=== PATIENT | female | born 1990 | race African-American/Black ===

== ENCOUNTER 2022-05-29 14:56 | Inpatient (IN) | payer MEDICAID, OTHER ==
[2022-05-29] MEDS ORDERED: LACTATED RINGERS 1,000 ML ONE (15:15)
[2022-05-29] MEDS ORDERED: fentaNYL 100 MCG/2 ML INJ IV PRN (17:00)
[2022-05-29] MEDS ORDERED: LOPERAMIDE 2 MG CAP PO NR (17:00)
[2022-05-29] MEDS ORDERED: LIDOCAINE (2%) 20 MG/1 ML VIAL 20 ML MDV INFILTRATI NR (17:00)
[2022-05-29] MEDS ORDERED: METHYLERGONOVINE MALEATE 0.2 MG/ML VIAL IM NR (17:00)
[2022-05-29] MEDS ORDERED: OXYTOCIN 10 UNIT/1 ML INJ IM NR (17:00)
[2022-05-29] MEDS ORDERED: miSOPROStol 200 MCG TAB PR NR (17:00)
[2022-05-29] MEDS ORDERED: TERBUTALINE 1 MG/1 ML INJ SUB-Q NR (17:00)
[2022-05-29] MEDS ORDERED: OXYTOCIN DRIP 30 UNITS/500 ML BAG IV SCH ×2 (17:00)
[2022-05-29] MEDS ORDERED: ePHEDrine SULFATE 50 MG/1 ML INJ IV PRN ×2 (17:00→21:11)
[2022-05-29] MEDS ORDERED: LACTATED RINGERS 1,000 ML IV SCH (17:00)
[2022-05-29] MEDS ORDERED: ONDANSETRON 4 MG/2 ML INJ IV PRN (17:00)
[2022-05-29] MEDS ORDERED: BUTORPHANOL 2 MG/1 ML INJ IV PRN (17:00)
[2022-05-29] MEDS ORDERED: CARBOPROST TROMETHAMINE 250 MCG/1 ML INJ IM NR (17:00)
[2022-05-29] MEDS ORDERED: ACETAMINOPHEN 325 MG TAB PO PRN (17:00)
[2022-05-29 17:14] LABS: Hematocrit 37.1 % (30.3-42.9); Hemoglobin 12.4 gm/dl (10.1-14.3); Mean Corpuscular HGB Conc 33 % (30-34); Mean Corpuscular Volume 83 fl (79-97); Platelet Count 230 K/mm3 (140-440); Red Blood Count 4.45 M/mm3 (3.65-5.03); Red Cell Distribution Width 16.1 % (13.2-15.2)
--- NOTE | 2022-05-29 18:35 | History and Physical Report ---
History of Present Illness Date of examination: 05/29/22 (1800) Date of admission: 05/29/22 16:39 Chief complaint: contractions History of present illness: Patient is 31yo female of Life Cycle OBKELLIN, @39wks gestation. She presented for direct admission from the office. Her exam in the office was 6/60/-3, intact. She is GBS negative. She failed her 1hr Glucola (140), and passed her 3hr. Otherwise, her course was unremarkable. Past History Past Medical History: no pertinent history Past Surgical History: no surgical history Family/Genetic History: none Social history: - Obstetrical History Expected Date of Delivery: 06/05/22 Actual Gestation: 39 Week(s) 0 Day(s) : 2 Para: 1 Hx # Term Pregnancies: 1 Number of Pregnancies: 0 Spontaneous Abortions: 0 Induced : 0 Number of Living Children: 1 #1 Infant Gender: Male year: 2020 Birthweight: 7 lb 9.6 oz Method of Delivery: Vaginal Gestational age at delivery: 39 (meconium) Complications: none Medications and Allergies Allergies Allergy/AdvReac Type Severity Reaction Status Date / Time No Known Allergies Allergy Unverified 11/23/19 16:26 Home Medications Medication Instructions Recorded Confirmed Last Taken Type No Known Home Medications [No 11/23/19 11/23/19 Unknown History Reported Home Medications] Active Meds: Active Medications Acetaminophen (Acetaminophen 325 Mg Tab) 650 mg PO Q4H PRN PRN Reason: Pain, Mild (1-3) Butorphanol Tartrate (Butorphanol 2 Mg/1 Ml Inj) 1 mg IV Q2H PRN PRN Reason: Pain, Moderate(4-6) LABOR PAIN Carboprost Tromethamine (Carboprost Tromethamine 250 Mcg/1 Ml Inj) 250 mcg IM O NCE NR Stop: 05/29/22 23:59 Ephedrine Sulfate (Ephedrine Sulfate 50 Mg/1 Ml Inj) 10 mg IV Q2M PRN PRN Reason: Hypotension Fentanyl (Fentanyl 100 Mcg/2 Ml Inj) 100 mcg IV Q2H PRN PRN Reason: Pain,Severe (7-10) LABOR PAIN Last Admin: 05/29/22 18:19 Dose: 100 mcg Oxytocin/Sodium Chloride (Pitocin/Ns 30 Unit/500ml) 30 units in 500 mls @ 2 mls/hr IV TITR ACACIA; Protocol Last Titration: 05/29/22 17:46 Dose: 4 mls/hr Lactated Ringer's (Lactated Ringers) 1,000 mls @ 125 mls/hr IV DIRECT ACACIA Oxytocin/Sodium Chloride (Pitocin/Ns 30 Unit/500ml) 30 units in 500 mls @ 40 mls/hr IV TITR ACACIA; Protocol Lidocaine (Lidocaine (2%) 20 Mg/1 Ml Vial 20 Ml Mdv) 20 ml INFILTRATI ONCE NR Stop: 05/29/22 23:59 Loperamide HCl (Loperamide 2 Mg Cap) 2 mg PO ONCE NR Stop: 05/29/22 23:59 Methylergonovine Maleate (Methylergonovine Maleate 0.2 Mg/Ml Vial) 0.2 mg IM ONCE NR Stop: 05/29/22 23:59 Mineral Oil (Mineral Oil 30 Ml Oral Liqd) 30 ml PO QHS PRN PRN Reason: Constipation Misoprostol (Misoprostol 200 Mcg Tab) 800 mcg AL ONCE NR Stop: 05/29/22 23:59 Ondansetron HCl (Ondansetron 4 Mg/2 Ml Inj) 4 mg IV Q8H PRN PRN Reason: Nausea And Vomiting Oxytocin (Oxytocin 10 Unit/1 Ml Inj) 10 unit IM ONCE NR Stop: 05/29/22 23:59 Terbutaline Sulfate (Terbutaline 1 Mg/1 Ml Inj) 0.25 mg SUB-Q ONCE NR Stop: 05/29/22 23:59 - Vital Signs Vital signs: Vital Signs Pulse Pulse Ox 88 97 05/29/22 15:17 05/29/22 15:17 Temp Pulse Resp BP Pulse Ox 89 20 110/73 92 05/29/22 18:29 05/29/22 18:19 05/29/22 18:22 05/29/22 18:29 - Physical Exam Breasts: Positive: deferred Cardiovascular: Regular rate Lungs: Positive: Clear to auscultation, Normal air movement Abdomen: Positive: normal appearance Genitourinary (Female): Positive: normal external genitalia Vulva: both: normal Vagina: Positive: normal moisture Uterus: Positive: enlarged (gravid) Anus/Rectum: Positive: normal perianal skin Extremities: Positive: normal Deep Tendon Reflex Grade: Normal +2 - Obstetrical FHR: category 1 Uterine Contraction Monitor Mode: External Cervical Dilatation: 6 Cervical Effacement Percentage: 80 station: -3 Uterine Contraction Pattern: Regular Uterine Contraction Intensity: Moderate Results Result Diagrams: 05/29/22 15:40 Abnormal lab results 05/29/22 Range/Units 15:40 RDW 16.1 H (13.2-15.2) % All other labs normal. Assessment and Plan A: HD#1 @39wks Labor Pitocin @2mu P: External monitoring EFM/TOCO L&D nursing care management AROM
[2022-05-29] MEDS ORDERED: MINERAL OIL 30 ML ORAL LIQD ONE (19:35)
[2022-05-29] MEDS ORDERED: NALOXONE 0.4 MG/1 ML INJ IV PRN (21:11)
[2022-05-29] MEDS ORDERED: fentaNYL-BUPIV 2 MCG/ML-0.125% 200 MCG/100 ML BAG EPIDURAL SCH (21:11)
--- NOTE | 2022-05-29 21:14 | Anesthesia Consultation ---
Anesthesia Consult and Med Hx Date of service: 05/29/22 - Airway Anesthetic Teeth Evaluation: Good ROM Head & Neck: Adequate Mental/Hyoid Distance: Adequate Mallampati Class: Class II Intubation Access Assessment: Probably Good - Pulmonary Exam CTA: Yes - Cardiac Exam Cardiac Exam: RRR - Pre-Operative Health Status ASA Pre-Surgery Classification: ASA2 Proposed Anesthetic Plan: Epidural, Spinal - Pulmonary Hx Smoking: No Hx Asthma: No Hx Respiratory Symptoms: No SOB: No COPD: No Home Oxygen Therapy: No Hx Pneumonia: No Hx Sleep Apnea: No - Cardiovascular System Hx Hypertension: No Hx Coronary Artery Disease: No Hx Heart Attack/AMI: No Hx Angina: No Hx Percutaneous Transluminal Coronary Angioplasty (PTCA): No Hx Cardia Arrhythmia: No Hx Pacemaker: No Hx Internal Defibrillator: No Hx Valvular Heart Disease: No Hx Heart Murmur: No Hx Peripheral Vascular Disease: No - Central Nervous System Hx Neuromuscular Disorder: No Hx Seizures: No CVA: No Hx Back Pain: No Hx Psychiatric Problems: No - Gastrointestinal Hx Ulcer: No Hx Gastroesophageal Reflux Disease: No - Endocrine Hx Renal Disease: No Hx End Stage Renal Disease: No Hx Cirrhosis: No Hx Liver Disease: No Hx Insulin Dependent Diabetes: No Hx Non-Insulin Dependent Diabetes: No Hx Thyroid Disease: No Hx Hypothyroidism: No Hx Hyperthyroidism: No - Hematic Hx Anemia: No Hx Sickle Cell Disease: No - Other Systems Hx Alcohol Use: No Hx Substance Use: No Hx Cancer: No Hx Obesity: No
--- NOTE | 2022-05-29 21:15 | Anesthesia Day of Surgery ---
Anesthesia Day of Surgery - Day of Surgery Patient Examined: Yes Patient H&P Reviewed: Yes Patient is NPO: Yes Beta Blockers: No Cardiac Clearance: No Pulmonary Clearance: No Luis's Test: N/A
--- NOTE | 2022-05-29 21:17 | Progress Note ---
Labor Epidural - Labor Epidural Start Time: 20:57 Stop Time: 21:03 Performed by:: ANDREA VALENCIA Procedure: Epidural Requested for Labor Pain. H&P and PT Chart reviewed and consent obtained. Time out performed and the procedure was explained, all questions answered. Patient was placed in a sitting position with monitors applied. The PTs back was prepped and draped in usual sterile fashion. The Skin was localized with 3 mL of 1% lidocaine at L3-L4. A 17-gauge Touhy epidural needle was advanced to MERLY with saline at 7 cm and no blood/CSF was noted via epidural needle. .8ml of .75% marcaine was injected through a 25g spinal/epidural needle.
--- NOTE | 2022-05-29 21:40 | Event Note ---
Date: 05/29/22 (1944) Patient called out with desire to push @1944, Ve: /-1. Pt was pushing due to urge though warned of cervical swelling (niece at bs for translation) Attempted to reduce, not successful. Attempted to assist patient with different laboring position, ie: hands and knees, squatting, etc.. @2056 received low dose spinal to aid with urge of pushing. Once procedure completed pt fell asleep,@2114 Ve: anterior lip(swollen)/0 station. Plan: Labor down Anticipate vaginal delivery
[2022-05-29] MEDS ORDERED: MINERAL OIL 30 ML ORAL LIQD PO PRN (22:00)
--- NOTE | 2022-05-30 00:17 | Progress Note ---
Labor Epidural - Labor Epidural Start Time: 23:43 Stop Time: 23:55 Performed by:: ANDREA VALENCIA Procedure: Epidural Requested for Labor Pain. H&P and PT Chart reviewed and consent obtained. Time out performed and the procedure was explained, all questions answered. Patient was placed in a sitting position with monitors applied. The PTs back was prepped and draped in usual sterile fashion. The Skin was localized with 3 mL of 1% lidocaine at L3-L4. A 17-gauge Touhy epidural needle was advanced to MERLY with saline at 7 cm and no blood/CSF was noted via epidural needle. Epidural catheter was advanced to 12 cm. There was negative aspiration for blood and CSF in the catheter and negative response to a test dose of 3 ml 1.5% lidocaine w/ Epi and a sterile dressing was applied Patient tolerated the procedure well and there were no immediate complications noted.
[2022-05-30] MEDS ORDERED: D5W/LACTATED RINGERS 1,000 ML IV SCH (06:00)
[2022-05-30] MEDS ORDERED: AZITHROMYCIN/NS 500 MG/250 ML 500 MG/250 ML BAG IV ONE (06:32)
[2022-05-30] MEDS ORDERED: FAMOTIDINE 20 MG/2 ML INJ IV ONE (06:32)
[2022-05-30] MEDS ORDERED: BICITRA ORAL LIQD 30ML PO ONE (06:32)
[2022-05-30] MEDS ORDERED: METOCLOPRAMIDE 10 MG/2 ML INJ IV ONE (06:32)
--- NOTE | 2022-05-30 06:38 | Ultrasound Report ---
ULTRASOUND OBSTETRIC INDICATION / CLINICAL INFORMATION: Prolonged 2nd stage of labor. - Clinical Gestational Age (GA) in weeks, days: 39 weeks 1 day TECHNIQUE: Transabdominal. COMPARISON: None available. FINDINGS: Single intrauterine . Biparietal Diameter = 8.8 cm = 35, 4 weeks, days Head Circumference = 32.5 cm = 36, 6 weeks, days Abdominal Circumference = 31.3 cm = 35, 2 weeks, days Femur Length = 7.0 cm = 35, 6 weeks, days Average Ultrasound Age (AUA) = 35, 6 weeks, days Heart Rate: 165 beats per minute. Estimated Weight in grams (if calculated): 2715 Estimated Weight Growth Percentile (if calculated): Not calculated. Position: cephalic. Baby is facing head down with spine up. IMPRESSION: 1. Single, living intrauterine with estimated sonographic age of 35 weeks 6 days, which is discordant from the clinical age of 39 weeks 1 day. 2. No significant sonographic abnormality. Signer Name: Bridger Contreras MD Signed: 05/30/2022 6:34 AM Workstation Name: [id number]
[2022-05-30] MEDS ORDERED: BUPIVACAINE/PF (0.25%) 2.5 MG/ML 10 ML VIAL INFILTRATI ONE (06:43)
[2022-05-30] MEDS ORDERED: LACTATED RINGERS 1,000 ML IV SCH ×2 (06:45→13:30)
[2022-05-30] MEDS ORDERED: ceFAZolin/STERILE WATER 2 GM/20 ML SYRINGE IV ONE (06:58)
[2022-05-30] MEDS ORDERED: ceFAZolin/Water 2 GM/20 ML 2 GM/20 ML SYRINGE IV NR (07:00)
[2022-05-30] MEDS ORDERED: OXYTOCIN DRIP 30 UNITS/500 ML BAG IV SCH (07:00)
[2022-05-30] MEDS ORDERED: WATER FOR IRRIG STERILE 1,500 ML BOTTLE IR ONE (07:22)
[2022-05-30] MEDS ORDERED: SODIUM CHLORIDE 0.9% IRR 1,500 ML BOTTLE IR ONE (07:22)
[2022-05-30] MEDS ORDERED: LIDOCAINE PF 100 MG/5 ML (CARDIAC SYRINGE) IV ONE ×3 (07:36→08:31)
[2022-05-30 07:37] LABS: Hematocrit 35.1 % (30.3-42.9); Hemoglobin 11.5 gm/dl (10.1-14.3); Mean Corpuscular HGB Conc 33 % (30-34); Mean Corpuscular Volume 83 fl (79-97); Platelet Count 195 K/mm3 (140-440); Red Blood Count 4.26 M/mm3 (3.65-5.03); Red Cell Distribution Width 16.2 % (13.2-15.2)
[2022-05-30] MEDS ORDERED: CARBOPROST TROMETHAMINE 250 MCG/1 ML INJ IM ONE ×2 (08:00→08:04)
[2022-05-30] MEDS ORDERED: METHYLERGONOVINE MALEATE 0.2 MG/ML VIAL IM ONE ×2 (08:00→08:04)
[2022-05-30] MEDS ORDERED: AMPICILLIN 2 GM in SODIUM CHLORIDE 0.9% 50 ML IV SCH (08:00)
[2022-05-30] MEDS ORDERED: PHENYLEPHRINE/NS 1,000 MCG/10 ML SYRINGE (OR USE) IV ONE (08:10)
[2022-05-30] MEDS ORDERED: fentaNYL 100 MCG/2 ML INJ ONE ×2 (08:13→09:24)
[2022-05-30] MEDS ORDERED: BUPIVACAINE/PF (0.5%) 5 MG/1 ML 30 ML VIAL INFILTRATI ONE (08:21)
[2022-05-30 08:35] LABS: Anisocytosis 1+; Band Neutrophils # (Manual) 0.7 K/mm3; Basophils % (Manual) 0 % (0.0-1.8); Eosinophils % (Manual) 0 % (0.0-4.3); Platelet Estimate Consistent w Auto; Total Cells Counted 100
[2022-05-30] MEDS ORDERED: ONDANSETRON 4 MG/2 ML INJ ONE (08:41)
[2022-05-30] MEDS ORDERED: DIPHENOXYLATE/ATROPINE TAB PO PRN (10:00)
[2022-05-30] MEDS ORDERED: ACETAMINOPHEN 500 MG TAB ONE (10:04)
--- NOTE | 2022-05-30 10:09 | Progress Note ---
Regional Anesthesia Block - Regional Anesthesia Block Start Time: :45 Stop Time: :50 Performed By:: ANDREA VALENCIA Procedure: . After Pts C/S was completed a time out was performed prior to the start of the procedure. The Trans Abdominal Plane was identified bilaterally via ultrasound. The skin was prepped bilaterally with chlorhexidine and a 22g stimuplex needle was advanced to the area between the internal oblique muscle a nd the trans abdominal plane. Marcaine 0.25% 30mlwas injected under ultrasound guidance on the left and right side. Negative aspiration every 5mL, There was no change in the patients heart rate or rhythm and the patient tolerated the procedure well. No apparent complications were observed.
[2022-05-30] MEDS ORDERED: IBUPROFEN 600 MG TAB PO PRN ×2 (10:44→10:51)
--- NOTE | 2022-05-30 10:53 | Procedure Note ---
OB Delivery Note - Delivery Date of Delivery: 05/30/22 Surgeon: MONTSERRAT FOSTER Estimated blood loss: other (1558 mL) - Section Preop diagnosis: other (1.) 39-1/7 weeks, 2.) Second stage arrest, 3.) Intraamniotic inflammation and infection, 4.) Meconium) Postop diagnosis: other (1.) 39-1/7 weeks, 2.) Second stage arrest, 3.) Intraamniotic inflammation and infection, 4.) Meconium, 5.) Cephalopelvic disproportion) section procedure: primary low transverse Disposition: PACU Complications: none Narrative: PREOPERATIVE DIAGNOSES: 1.) Intrauterine at 39-1/7 weeks gestation 2.) Second stage arrest. 3.) Intraamniotic inflammation and infection. 4.) Meconium. POSTOPERATIVE DIAGNOSES: 1.) Intrauterine at 39-1/7 weeks gestation 2.) Second stage arrest. 3.) Intraamniotic inflammation and infection. 4.) Meconium. 5.) Cephalopelvic disproportion. PROCEDURE PERFORMED: Primary low-transverse section. SURGEON: Montserrat Foster M.D. ANESTHESIA: Epidural and transverse abdominal plane block. FLUIDS: 2200 mL Lactated Ringer's. ESTIMATED BLOOD LOSS: 1558 mL. URINE OUTPUT: 300 mL. COMPLICATIONS: None. PATHOLOGY: Placenta sent for pathological examination. FINDINGS: Male in cephalic presentation, right occiput transverse position, weight 7 pounds 10 ounces. Apgars were 7 at 1 minute and 8 at 5 minutes. Normal uterus, tubes, and ovaries were noted. INDICATIONS: The patient is a 31-year-old 2, para 1 female, who presented to labor and delivery in active labor at 39 weeks gestation. The patient progressed to complete cervical dilation. Epidural was placed. Pitocin was given per protocol. But despite adequate contractions, she had second stage arrest at complete cervical, 100% effacement, and 0 station. Furthermore, there was maternal temperature of >39C, tachycardia, and maternal leukocytosis; this fulfills the contemporary criteria for intraamniotic inflammation and infection. A decision was made to proceed with a primary low transverse section. The procedure was described to the patient in detail including possible risks of bleeding, infection, injury to surrounding organs, and possible need for further surgery. Informed consent was obtained prior to proceeding with the procedure. PROCEDURE NOTE: The patient was taken to the operating room where epidural anesthesia was found to be adequate. Preoperative Ancef and azithromycin were administered. The patient was prepped and draped in the usual sterile fashion in the dorsal supine position with a left-li tilt. A Pfannenstiel skin incision was made with the scalpel and carried through to the underlying layer of fascia using the Bovie. The fascia was incised in the midline with the Bovie and extended laterally using the Bovie. Christiano clamps were used to elevate the superior aspect of the fascial incision, which was elevated, and the underlying rectus muscles were dissected off with the Bovie. Attention was then turned to the inferior aspect of the fascial incision, which in similar fashion was grasped with Christiano clamps, elevated, and the underlying rectus muscles were dissected off using Estrada scissors. The rectus muscles were dissected in the midline with the Bovie. The peritoneum was sharply dissected with the Metzenbaum scissors, entered, and extended superiorly and inferiorly with good visualization of the bladder. The Cortes self-retaining retractor was inserted. The vesicouterine peritoneum was identified with pickups and entered sharply using Metzenbaum scissors. This incision was extended laterally and the bladder flap was created digitally. The bladder blade was inserted. The lower uterine segment was incised in a transverse fashion using the scalpel and extended using manual traction. Meconium was noted. The fetus was in right occiput transverse position. The head was gently elevated out of the pelvis and then subsequently delivered atraumatically. The mouth and nose were bulb suctioned. The cord was clamped and cut. The infant was subsequently handed to the awaiting nursery team. Cord blood was obtained. Subsequent to the collection of this blood, the placenta was removed spontaneously intact with a 3-vessel cord noted. The uterus was cleared of all clots and debris. The uterus was left in situ. The uterine incision was repaired with 0 Monocryl in a running fashion. Then, the uterine incision was repaired with a second layer of 0 Monocryl in a horizontal imbricating fashion. The vesicouterine peritoneum was then reapproximated with 3-0 Vicryl in a running fashion. Hemostasis was visualized. Subsequently, the Cortes retractor was removed. The uterus was exteriorized. The posterior cul-de-sac was irrigated. Then, the uterus was returned to the abdomen. The pelvis was copiously irrigated. The uterine incision was reexamined and was noted to be hemostatic. The parietal peritoneum was reapproximated with 3-0 Jesus ryl in a running fashion. Then, the rectus muscles were reapproximated in the midline using 2-0 chromic. The fascia was closed with 0 Vicryl, the subcutaneous layer was closed with 2-0 chromic gut, and the skin was closed with 3-0 Vicryl in a running subdermal fashion. The skin edges were tension-free and well approximated, so Dermabond was then placed atop the skin. Sponge, lap, and instrument counts were correct x2. The patient was stable at the completion of the procedure and was subsequently transferred to the recovery room in stable condition. Postoperative ampicillin and gentamicin were ordered for treatment of intra amniotic inflammation and infection. Lactic acid level and blood cultures were ordered as well. - Infant A at 1 minute: 7 at 5 minutes: 8 Gender: Male
[2022-05-30] MEDS ORDERED: PROMETHAZINE 25 MG TAB PO PRN (11:00)
[2022-05-30] MEDS ORDERED: ACETAMINOPHEN 325 MG TAB PO PRN (11:00)
[2022-05-30] MEDS ORDERED: PROMETHAZINE 25 MG RECT SUPP PR PRN (11:00)
[2022-05-30] MEDS ORDERED: NALOXONE 0.4 MG/1 ML INJ IV PRN (11:00)
[2022-05-30] MEDS ORDERED: fentaNYL-BUPIV 2 MCG/ML-0.125% 200 MCG/100 ML BAG EPIDURAL SCH (11:00)
[2022-05-30] MEDS ORDERED: ACETAMINOPHEN 500 MG TAB PO NR (11:00)
[2022-05-30] MEDS ORDERED: LANOLIN/ZINC/DIMETHICONE (LANSINOH) 7 GM TP PRN (11:00)
[2022-05-30] MEDS ORDERED: MORPHINE 4 MG/1 ML INJ IV PRN (11:00)
[2022-05-30] MEDS ORDERED: ONDANSETRON 4 MG/2 ML INJ IV PRN (11:00)
[2022-05-30] MEDS ORDERED: diphenhydrAMINE 50 MG/ML VIAL IV PRN (11:00)
[2022-05-30] MEDS ORDERED: SIMETHICONE 80 MG CHEW TAB PO PRN (11:00)
[2022-05-30] MEDS ORDERED: HYDROmorphone 1 MG/1 ML INJ IV PRN ×2 (11:00)
[2022-05-30] MEDS ORDERED: KETOROLAC 30 MG/1 ML INJ IV PRN (14:15)
[2022-05-30] MEDS ORDERED: KETOROLAC 60 MG/2 ML INJ IM ONE (14:30)
[2022-05-30] MEDS ORDERED: KETOROLAC 30 MG/1 ML INJ IM SCH (15:00)
[2022-05-30] MEDS: AMPICILLIN/NS 2 GM/100 ML 2 GM/100 ML BAG IV SCH ×2 (15:16→21:08)
[2022-05-30] MEDS: GENTAMICIN 360 MG in SODIUM CHLORIDE 0.9% 100 ML IV SCH (17:02)
[2022-05-30] MEDS: IBUPROFEN 800 MG TAB PO PRN (21:08)
[2022-05-30] MEDS ORDERED: HEPARIN 5,000 UNIT/1 ML VIAL SUB-Q SCH (22:00)
[2022-05-31] MEDS ORDERED: LACTATED RINGERS 1,000 ML IV SCH (02:30)
[2022-05-31] MEDS: AMPICILLIN/NS 2 GM/100 ML 2 GM/100 ML BAG IV SCH ×4 (02:30→23:11)
[2022-05-31] MEDS: IBUPROFEN 800 MG TAB PO PRN ×3 (05:34→18:39)
[2022-05-31] MEDS: PRENATAL VIT27-FE FUMARATE-FOLIC ACID VIT TAB PO SCH (08:20)
[2022-05-31] MEDS: HYDROcodone/ACETAMINOPHEN 5-325 MG TAB PO PRN ×3 (08:20→23:11)
[2022-05-31 08:53] LABS: Hematocrit 23.9 % (30.3-42.9); Hemoglobin 7.7 gm/dl (10.1-14.3); Mean Corpuscular HGB Conc 32 % (30-34); Mean Corpuscular Volume 83 fl (79-97); Platelet Count 202 K/mm3 (140-440); Red Blood Count 2.88 M/mm3 (3.65-5.03); Red Cell Distribution Width 16.4 % (13.2-15.2)
[2022-05-31 09:37] LABS: Anisocytosis 1+; Band Neutrophils # (Manual) 1.1 K/mm3; Basophils % (Manual) 0 % (0.0-1.8); Myelocytes # (Manual) 0.3 K/mm3; Platelet Estimate Consistent w Auto; Total Cells Counted 100; Toxic Vacuolation 1+
--- NOTE | 2022-05-31 11:49 | Progress Note ---
Assessment and Plan A: POD #1 Asymptomatic Anemia P: Follow Routine PostOp Orders Infed 100mg IM x 1 dose Ferrous Sulfate 325mg PO BID Subjective - Subjective Date of service: 05/31/22 Patient reports: appetite normal, voiding normally, pain well controlled, flatus, ambulating normally : in NICU, bottle feeding Objective - Vital Signs Latest vital signs: Vital Signs Temp Pulse Resp BP BP BP Pulse Ox 05/31/22 08:22 98.1 F 86 20 91/55 95 05/31/22 08:20 05/31/22 06:34 18 05/31/22 05:34 20 05/31/22 04:53 97.8 F 92 H 18 100/41 96 05/31/22 00:33 98.2 F 105 H 20 98/44 96 05/30/22 22:08 18 05/30/22 21:08 20 05/30/22 20:00 05/30/22 19:56 98.1 F 98 H 20 95/55 95 05/30/22 16:17 98.8 F 94 H 20 89/50 96 05/30/22 15:32 98.8 F 62 20 88/40 90/39 98 Pulse Ox 05/31/22 08:22 05/31/22 08:20 100 05/31/22 06:34 05/31/22 05:34 05/31/22 04:53 05/31/22 00:33 05/30/22 22:08 05/30/22 21:08 05/30/22 20:00 100 05/30/22 19:56 05/30/22 16:17 05/30/22 15:32 Intake and Output 05/30/22 05/31/22 05/31/22 22:59 06:59 14:59 Intake Total 440 580 240 Output Total 1100 250 Balance -660 580 -10 Intake: IV 200 100 AMPICILLIN/NS 2 GM/100 ML 200 100 2 gm In 100 ml @ 100 mls /hr IV Q6H COUNT INCLUDES THE [facility] Rx#: [id number] Intake, Free Water 240 480 240 Output: Urine 1100 250 Indwelling Catheter 1100 Void 250 Other: Total, Output Amount 500 250 # Voids Void 40 3 - Exam Breasts: Present: normal Cardiovascular: Present: Regular rate Lungs: Present: Clear to auscultation, Normal air movement Abdomen: Present: normal appearance, soft, normal bowel sounds Uterus: Present: normal, firm, fundal height below umbilicus Extremities: Present: normal Incision: Present: normal, dry, intact - Labs Labs: Abnormal lab results 05/31/22 Range/Units 08:31 WBC 26.6 H (4.5-11.0) K/mm3 RBC 2.88 L (3.65-5.03) M/mm3 Hgb 7.7 L D (10.1-14.3) gm/dl Hct 23.9 L D (30.3-42.9) % MCH 27 L (28-32) pg RDW 16.4 H (13.2-15.2) % Seg Neuts % (Manual) 89.0 H (40.0-70.0) % Lymphocytes % (Manual) 4.0 L (13.4-35.0) % Seg Neutrophils # Man 23.7 H (1.8-7.7) K/mm3 Lymphocytes # (Manual) 1.1 L (1.2-5.4) K/mm3
[2022-05-31] MEDS: FERROUS SULFATE 325 MG TAB PO SCH ×2 (13:35→23:11)
[2022-05-31] MEDS ORDERED: IRON DEXTRAN COMPLEX 100 MG/2 ML INJ IM ONE (14:00)
[2022-05-31] MEDS: GENTAMICIN 360 MG in SODIUM CHLORIDE 0.9% 100 ML IV SCH (17:00)
[2022-06-01] MEDS: AMPICILLIN/NS 2 GM/100 ML 2 GM/100 ML BAG IV SCH ×2 (05:44→10:26)
[2022-06-01] MEDS: IBUPROFEN 800 MG TAB PO PRN ×2 (05:50→17:14)
--- NOTE | 2022-06-01 05:53 | Post Anesthesia Evaluation ---
- Post Anesthesia Evaluation Patient Participated: Yes Airway Patent: Yes Stable Respiratory Function: Yes Nausea/Vomiting: No Temp > 96.8F: Yes Pain Manageable: Yes Adequeate Hydration: Yes Anesthesia Complications: No Block Receding Appropriately: Yes Patient on Ventilator: No Other Comments: Pt is complaining of a headache and neck pain that gets worse upon standing.
[2022-06-01] MEDS: PRENATAL VIT27-FE FUMARATE-FOLIC ACID VIT TAB PO SCH (09:40)
[2022-06-01] MEDS: FERROUS SULFATE 325 MG TAB PO SCH ×2 (09:41→22:57)
[2022-06-01] MEDS: GENTAMICIN 360 MG in SODIUM CHLORIDE 0.9% 100 ML IV SCH (11:30)
--- NOTE | 2022-06-01 12:59 | Progress Note ---
Assessment and Plan A: POD #2 Asymptomatic Anemia P: Follow Routine PostOp Orders Ferrous Sulfate 325mg PO BID D/C home today per patient request RTO in one Week Subjective - Subjective Date of service: 06/01/22 Patient reports: appetite normal, voiding normally, pain well controlled, flatus, ambulating normally : in NICU, bottle feeding Objective - Vital Signs Latest vital signs: Vital Signs Temp Pulse Resp BP Pulse Ox Pulse Ox 06/01/22 08:21 97.9 F 78 20 101/67 98 06/01/22 01:15 98.4 F 82 18 94/65 97 05/31/22 21:12 98 05/31/22 16:22 100 05/31/22 16:12 99.4 F 93 H 18 99/56 96 05/31/22 14:24 100 05/31/22 13:21 97.7 F 89 18 104/55 98 Intake and Output 05/31/22 06/01/22 06/01/22 22:59 06:59 14:59 Intake Total 940 560 300 Balance 940 560 300 Intake: IV 100 200 AMPICILLIN/NS 2 GM/100 ML 100 200 2 gm In 100 ml @ 100 mls /hr IV Q6H [facility] Rx#: [id number] Oral 480 300 Intake, Free Water 360 360 Other: Total, Intake Amount 240 100 # Voids Void 1 6 1 - Exam Breasts: Present: normal Cardiovascular: Present: Regular rate Lungs: Present: Clear to auscultation, Normal air movement Abdomen: Present: normal appearance, soft, normal bowel sounds Uterus: Present: normal, firm, fundal height below umbilicus Extremities: Present: normal Incision: Present: normal, dry, intact
[2022-06-01] MEDS: HYDROcodone/ACETAMINOPHEN 5-325 MG TAB PO PRN (13:00)
--- NOTE | 2022-06-01 13:00 | Discharge Summary ---
Providers - Providers Date of Admission: 05/29/22 16:39 Date of discharge: 06/01/22 Attending physician: MONTSERRAT PATEL MD Primary care physician: MONTSERRAT PATEL MD Hospitalization Reason for admission: active labor Delivery: Procedure: primary low transverse Episiotomy: none Laceration: none Incision: normal, dry, intact Other procedures: none complications: none Discharge diagnosis: IUP at term delivered baby: male Condition at discharge: Good Disposition: 01 HOME / SELF CARE / HOMELESS Plan - Provider Discharge Summary Activity: routine, no sex for 6 weeks, no heavy lifting 4 weeks, no strenuous exercise Diet: routine Instructions: routine Additional instructions: [] Smoking cessation referral if applicable(refer to patient education folder for contact #) [] Refer to [facility] Booklet Call your doctor immediately for: * Fever > 100.5 * Heavy vaginal bleeding ( >1 pad per hour) * Severe persistent headache * Shortness of breath * Reddened, hot, painful area to leg or breast * Drainage or odor from incision. * Keep incision clean and dry at all times and follow doctor's instructions regarding bathing/showering - Follow up plan Follow up: MONTSERRAT PATEL MD [Primary Care Provider] - 7 Days Forms: [facility] Discharge Summary
[2022-06-01] MEDS ORDERED: HYDROcodone/ACETAMINOPHEN 5-325 MG TAB PO PRN (13:03)
[2022-06-02] MEDS: IBUPROFEN 800 MG TAB PO PRN (08:14)
[2022-06-02] MEDS: FERROUS SULFATE 325 MG TAB PO SCH (09:46)
[2022-06-02] MEDS: PRENATAL VIT27-FE FUMARATE-FOLIC ACID VIT TAB PO SCH (09:46)
[2022-06-02 11:02] VITALS: BP 113/51
[2022-06-02 12:44] LABS: Basophils % (Auto) 0.3 % (0.0-1.8); Eosinophils # (Auto) 0.2 K/mm3 (0.0-0.4); Eosinophils % (Auto) 1.9 % (0.0-4.3); Hematocrit 24.1 % (30.3-42.9); Hemoglobin 7.8 gm/dl (10.1-14.3); Lymphocytes # (Auto) 1.9 K/mm3 (1.2-5.4); Lymphocytes % (Auto) 19.8 % (13.4-35.0); Mean Corpuscular HGB Conc 32 % (30-34); Mean Corpuscular Volume 83 fl (79-97); Monocytes # (Auto) 0.5 K/mm3 (0.0-0.8); Monocytes % (Auto) 4.9 % (0.0-7.3); Platelet Count 234 K/mm3 (140-440); Red Cell Distribution Width 15.8 % (13.2-15.2)
== END 2022-06-02 14:28 | disposition home or self-care (01) | DRG 786 ==
LOC: LD 14:56 → TRG 14:56 → APU 15:00 → TRG 16:39 → LD 16:39 → APU 05-30 07:36 → OB 05-30 11:04
PROVIDERS: ADMIT Obstetrics & Gynecology Gynecology; ATTEND Obstetrics & Gynecology Gynecology
PROC: 10D00Z1 Extraction of Products of Conception, Low, Open Approach (ICD-10-PCS; principal; 2022-05-30)
DX: O62.1 Secondary uterine inertia (principal); O41.1030 Infection of amniotic sac and membranes, unspecified, third trimester, not applicable or unspecified; O77.0 Labor and delivery complicated by meconium in amniotic fluid; O99.02 Anemia complicating childbirth; O33.9 Maternal care for disproportion, unspecified; Z20.822 Contact with and (suspected) exposure to COVID-19; Z3A.39 39 weeks gestation of pregnancy; Z37.0 Single live birth
CPT/HCPCS: 36415; 76816; 82140; 83036; 85007; 85025; 85027; 86850; 86900; 86901; 87040; 88307; G0378; J3490; J7060; J0290; J0690; J1580; J1750; J1885; J2001; J2370; J2405; J2590; J2765; J3010; J7120; J7121; U0003